=== PATIENT | male | born 1990 | race Two or more races ===

== ENCOUNTER 2016-10-23 09:38 | Emergency (ER) | payer SELFPAY ==
[~2016-10-23] VITALS: Ht 165.1 cm; Wt 59.0 kg
--- NOTE | 2016-10-23 09:38 | NUR ---
[employer] AND [employer] FROM STREETS FOR BIZARRE BEHAVIOR RUNNING AROUND IN STREETS EXPOSING HIMSELF. NAD NOTED. PT AGITATED AND COMBATIVE AT THIS TIME, RESTRAINTS PLACED PER MD. PT REFUSING TO RESPOND AT THIS TIME, UNABLE TO OBTAIN SOME INFORMATION. RR EVEN AND UNLABORED. PLACED ON MONITOR. AWAITING MD FOR EVAL.
[2016-10-23] MEDS ORDERED: LORAZEPAM INJ 2 MG/ML VIAL IV ONE ×2 (10:00→11:30)
[2016-10-23] MEDS ORDERED: IV NS 0.9% 1,000 ML BAG IV ONE ×2 (10:00→13:30)
[2016-10-23 10:09] LABS: BASOPHILS # (AUTO) 0.6 /CMM (0.0-0.2); BASOPHILS % (AUTO) 2.1 % (0.0-2.0); EOSINOPHILS # (AUTO) 0.1 /CMM (0.0-0.7); EOSINOPHILS % (AUTO) 0.5 % (0.0-6.0); HEMATOCRIT 39 % (39-51); HEMOGLOBIN 13.2 g/dL (13.5-17.5); LYMPHOCYTES # (AUTO) 1.5 /CMM (0.8-4.8); LYMPHOCYTES % (AUTO) 5.6 % (20.0-44.0); MEAN CORPUSCULAR HEMOGLOBIN 29 PG (26.0-33.0); MEAN CORPUSCULAR HGB CONC 34 g/dl (31.0-36.0); MEAN CORPUSCULAR VOLUME 85 fL (80-96); MONOCYTES # (AUTO) 1.5 /CMM (0.1-1.30); MONOCYTES % (AUTO) 5.6 % (2.0-12.0); NEUTROPHILS % (AUTO) 86.2 % (43.0-81.0); PLATELET COUNT (AUTO) 385 /CMM (150-450); RDW COEFFICIENT OF VARIATION 12.3 (11.5-15.0); WHITE BLOOD COUNT (AUTO) 26.7 K/uL (4.3-11.0)
[2016-10-23] MEDS ORDERED: IV NS 0.9% 1,000 ML ONE ×2 (10:23→13:19)
[2016-10-23] MEDS ORDERED: LORAZEPAM INJ 2 MG/ML VIAL ONE ×3 (10:23→17:00)
[2016-10-23] MEDS ORDERED: IV SET PRIMARY PUMP SET 1 EA INFUS.SET MC ONE ×2 (10:23→13:19)
[2016-10-23] MEDS ORDERED: LIDOCAINE 2% JEL UROJET 10 ML MM ONE ×2 (10:30→10:50)
[2016-10-23 10:34] LABS: CALCIUM, SERUM 8.7 mg/dL (8.5-10.1); CREATININE 1.3 mg/dL (0.6-1.3)
[2016-10-23 10:41] LABS: CREATINE KINASE MB 8.2 ng/mL (0-3.6)
[2016-10-23 10:45] LABS: BILIRUBIN,TOTAL 0.9 mg/dL (0.2-1.0); TOTAL PROTEIN, SERUM 7.1 g/dL (6.4-8.2)
--- NOTE | 2016-10-23 11:05 | NUR ---
URINE OBTAINED SENT TO LAB.
--- NOTE | 2016-10-23 11:15 | NUR ---
PT CAN NOT STOP MOVING, ER WILL CALL WHEN READY FOR CXR.
[2016-10-23 11:17] LABS: APPEARANCE,URINE Slightly Cloudy (CLEAR); BILIRUBIN,URINE Negative (NEGATIVE); BLOOD, URINE Negative Ery/uL (NEGATIVE); COLOR,URINE Yellow (YELLOW); KETONES,URINE Trace (NEGATIVE); LEUKOCYTE ESTERASE ,URINE Negative (NEGATIVE); NITRITE, URINE Negative (NEGATIVE); PH,URINE 5.5 (5.0-8.0); PROTEIN,URINE >=300 mg/dl (NEGATIVE); UGLUCOSE Negative (NEGATIVE); UROBILINOGEN,URINE 0.2 EU/dL (0.2)
[2016-10-23 11:30] LABS: ADD URINE CULTURE NO; RBC,URINE 0-2 /HPF (0-2); WBC,URINE 0-2 /HPF (0-3)
[2016-10-23 11:31] LABS: BACTERIA,URINE None seen /HPF (None Seen); SQUAMOUS EPITHELIAL CELL,UR None Seen /HPF (None Seen); URINE AMORPHOUS URATE Moderate /HPF (None Seen)
[2016-10-23 11:32] LABS: SPERM,URINE Present /HPF (None Seen)
[2016-10-23 11:53] LABS: CANNABINOID, URINE NEGATIVE (NEGATIVE); PHENCYCLIDINE SCREEN,URINE NEGATIVE (NEGATIVE)
[2016-10-23] MEDS ORDERED: ZIPRASIDONE MESYLATE 20 MG/VIAL VIAL IM ONE (17:00)
[2016-10-23] MEDS ORDERED: LORAZEPAM INJ 2 MG/ML VIAL IM ONE (17:00)
--- NOTE | 2016-10-23 17:26 | NUR ---
MEDICATIONS GIVEN PER MD ORDER.
--- NOTE | 2016-10-23 19:01 | NUR ---
26 YO MALE RESTING IN ER BED, NAD NOTED SKIN WARM AND DRY. 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
--- NOTE | 2016-10-24 | NUR ---
26 YO MALE RESTING IN ER BED, NAD NOTED SKIN WARM AND DRY. 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
--- NOTE | 2016-10-24 03:08 | NUR ---
26 YO MALE RESTING IN ER BED, NAD NOTED SKIN WARM AND DRY. 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
--- NOTE | 2016-10-24 05:17 | NUR ---
PT ASSISTED TO ER RESTROOM WITH UNSTEADY. PT URINATED IN ER RESTROOM THEN ASSISTED BACK TO ER BED. 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
[2016-10-24 08:23] VITALS: BP 142/60
== END 2016-10-24 08:24 | disposition home or self-care (01) ==
LOC: ER 09:40
DX: R41.82 Altered mental status, unspecified (principal); F15.10 Other stimulant abuse, uncomplicated; M62.82 Rhabdomyolysis; E86.0 Dehydration; F17.200 Nicotine dependence, unspecified, uncomplicated
CPT/HCPCS: 36415; 71010-TC; 80053-TC; 80305; 81000-TC; 82550-TC; 82553-TC; 85025-TC; A4606; J2060; J3486; J3490; J7030; Z7610